=== PATIENT | male | born 1985 | race Hispanic/Latino ===

== ENCOUNTER 2018-04-26 07:00 | Outpatient (CLI) | payer BC ==
[2018-04-26 15:29] LABS: #Eosinphils 0.1 thou/uL (0.0-0.7); #Lymphocytes 1.3 thou/uL (1.20-3.40); #Monocytes 0.6 thou/uL (0.11-0.59); #Neutrophils 5.2 thou/uL (1.40-6.50); %Basophils 0.3 % (0.0-1.0); %Eosinophils 1.3 % (0.0-10.0); %Lymphocytes 17.6 % (21.0-51.0); %Monocytes 8.4 % (0.0-10.0); %Neutrophils 72.4 % (42.0-75.0); Hemoglobin 16.1 g/dL (14.0-18.0); Mean Corpuscular HGB CONC 34.5 g/dL (32.0-36.0); Mean Corpuscular Hemoglobin 31.5 pg (27.0-31.0); Mean Corpuscular Volume 91.3 fL (78.0-98.0); Mean Platelet Volume 8.1 fL (7.4-10.4); Platelet Count 236 thou/uL (130-400); RBC Distribution Width 12.7 % (11.5-14.5); White Blood Cell (WBC) Count 7.2 thou/uL (4.8-10.8)
[2018-04-26 15:55] LABS: Anion Gap 15 mmol/L (10-20); Calc. Creatinine Clearance 0 mL/min (70-130); Calcium 9.6 mg/dL (7.8-10.44); Carbon Dioxide 22 mmol/L (22-29); Chloride 105 mmol/L (98-107); Estimated GFR-MDRD 69; Glucose 130 mg/dL (70-105); Potassium 4.2 mmol/L (3.5-5.1); Sodium 138 mmol/L (136-145)
[2018-04-26 16:14] LABS: BUN (Urea Nitrogen) 14 mg/dL (8.9-20.6)
== END 2018-04-26 07:01 | disposition home or self-care (01) ==
LOC: LABBT 07:00
PROVIDERS: ATTEND Specialist
DX: Z01.812 Encounter for preprocedural laboratory examination (principal); K43.9 Ventral hernia without obstruction or gangrene
CPT/HCPCS: 80048; 85025

== ENCOUNTER 2018-04-30 11:42 | Day surgery (SDC) | payer BC ==
[2018-04-26 14:56] VITALS: BMI 38.7
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
[2018-04-30] MEDS ORDERED: Ketorolac Tromethamine 30 MG/ML VIAL ONE (12:32)
[2018-04-30] MEDS ORDERED: CEFAZOLIN 2 GM/50 ML BAG ONE (12:32)
[2018-04-30] MEDS ORDERED: Midazolam HCl 2 mg/2 ml Vial ONE (14:19)
[2018-04-30] MEDS ORDERED: Fentanyl 100 MCG/2 ML VIAL ONE ×5 (14:19→17:54)
[2018-04-30] MEDS ORDERED: PHENYLEPHRINE-NS 100 MCG/ML 10 ML SYRINGE ONE ×2 (16:10→16:19)
[2018-04-30] MEDS ORDERED: Glycopyrrolate 0.2 MG/ML 5 ML SYRINGE ONE (16:10)
[2018-04-30] MEDS ORDERED: Vecuronium 10 MG VIAL ONE ×2 (16:10→16:19)
[2018-04-30] MEDS ORDERED: Lidocaine 1% PF 5 ML VIAL ONE (16:10)
[2018-04-30] MEDS ORDERED: Ondansetron PF 4 MG/2 ML Vial ONE (16:10)
[2018-04-30] MEDS ORDERED: Rocuronium Bromide 10 MG/ML (10ML VIAL) ONE (16:10)
[2018-04-30] MEDS ORDERED: ePHEDrine/0.9% NaCl/PF SYRINGE 50 mg/10 ml ONE (16:10)
[2018-04-30] MEDS ORDERED: PROPOFOL 200 MG/20 ML VIAL ONE (16:10)
[2018-04-30] MEDS ORDERED: Famotidine/PF 20 mg/2ml Vial ONE (16:19)
[2018-04-30] MEDS ORDERED: Rocuronium Bromide 50 MG/5 ML VIAL ONE (16:20)
[2018-04-30] MEDS ORDERED: SUGAMMADEX SODIUM 200 MG/2 ML VIAL ONE (17:01)
[2018-04-30] MEDS ORDERED: HYDROcodone/Acetaminophen 5/325 mg Tablet ONE (18:43)
--- NOTE | 2018-04-30 23:22 | OP ---
DATE OF PROCEDURE: 04/30/2018 PREOPERATIVE DIAGNOSES: Morbid obesity, umbilical/ventral hernia, symptomatic. POSTOPERATIVE DIAGNOSES: Morbid obesity, umbilical/ventral hernia, symptomatic. PROCEDURE PERFORMED: Robotic repair of umbilical hernia, 4 cm defect, with reinforcement of fascial closure with 11.4 cm round Ventralight mesh. ANESTHESIA: General, local 0.5% Marcaine with epinephrine 30 mL. DESCRIPTION OF PROCEDURE: The patient was taken to the operating room, where under general anesthesia, abdomen was clipped of hair, prepared with ChloraPrep and draped in routine fashion. Left subxiphoid incision was made and pneumoperitoneum to 15 mmHg obtained with a Veress needle, replaced it with an 11 port with a balloon stay. Once this was in place, bilateral far lateral subcostal incisions were made and 8 mm port was placed. A robot was then docked, positioned, and robotic repair of the ventral/umbilical hernia undertaken. Falciform ligament was taken down with hot scissors. Incarcerated omentum reduced from the 4-cm umbilical hernia defect. Hemostasis was gained with the cautery. The fascial edges identified and closed with continuous suture of #1 V-Loc suture. Once this was approximated to and fro, pneumoperitoneum was reduced to 10 mmHg. An 11.4-cm round Ventralight mesh secured to the abdominal wall with the previously used suture, centering it about the hernia defect. The Ventralight mesh was then secured circumferentially with 2 sutures of 2-0 Stratafix. Once this was in good position, sutures were cut, needle was removed. Pneumoperitoneum was reduced and all ports reduced, and incisions closed with continuous subcu suture of 4-0 Monocryl, and [place] glue applied. Abdominal binder was placed along with a Kerlix roll in the old hernia defect. The patient tolerated the procedure well. It should be mentioned that during the closure of the defect, the hernia sac was incorporated in the fascial closure to reduce redundancy and space. Job ID: [id number]
== END 2018-04-30 20:31 | disposition home or self-care (01) ==
LOC: SDC 11:42
PROVIDERS: ATTEND Specialist
PROC: 0WUF4JZ Supplement Abdominal Wall with Synthetic Substitute, Percutaneous Endoscopic Approach (ICD-10-PCS; principal; 2018-04-30)
DX: K42.0 Umbilical hernia with obstruction, without gangrene (principal); E66.01 Morbid (severe) obesity due to excess calories; Z68.41 Body mass index [BMI] 40.0-44.9, adult
CPT/HCPCS: J0131; J1885; J2001; J2250; J2405; J2704; J3010; S0028

== ENCOUNTER 2019-01-24 18:20 | Emergency (ER) | payer BC, SELFPAY ==
[~2019-01-24 18:20] MED LIST: Iopamidol 370 76% 100 ML VIAL ONE
[2019-01-24] MEDS ORDERED: Acetaminophen 500 MG TAB ONE (19:05)
[2019-01-24] MEDS ORDERED: Ketorolac Tromethamine 30 MG/ML VIAL ONE (19:05)
[2019-01-24 19:19] LABS: #Basophils 0.1 thou/uL (0.0-0.2); #Eosinphils 0.2 thou/uL (0.0-0.7); #Lymphocytes 1.6 thou/uL (1.20-3.40); #Monocytes 0.7 thou/uL (0.11-0.59); #Neutrophils 8.4 thou/uL (1.40-6.50); %Eosinophils 1.5 % (0.0-10.0); %Lymphocytes 14.8 % (21.0-51.0); %Monocytes 6.1 % (0.0-10.0); %Neutrophils 76.6 % (42.0-75.0); Hemoglobin 15.3 g/dL (14.0-18.0); Mean Corpuscular HGB CONC 31.4 g/dL (32.0-36.0); Mean Corpuscular Hemoglobin 29.2 pg (27.0-31.0); Mean Corpuscular Volume 92.9 fL (78.0-98.0); Platelet Count 301 thou/uL (130-400); RBC Distribution Width 15.1 % (11.5-14.5); Red Blood Cell (RBC) Count 5.26 mill/uL (4.70-6.10); White Blood Cell (WBC) Count 10.9 thou/uL (4.8-10.8)
[2019-01-24 19:21] LABS: Bilirubin Small (Negative); Blood, Urine Negative (Negative); Clarity Slightly Cloudy (Clear); Glucose, Urine (Dipstick) Negative (Negative); Leukocyte Negative (Negative); Nitrite Negative (Negative); Protein, Urine (Dipstick) 30 mg/dL (Neg-Trace)
[2019-01-24 19:24] LABS: Bacteria/HPF None Seen HPF (None Seen); RBC/HPF 0-3 HPF (0-3); Squamous Epithelial 0-3 HPF (0-3); WBC/HPF 0-3 HPF (0-3)
[2019-01-24 19:35] LABS: ALT (SGPT) 39 U/L (8-55); AST (SGOT) 34 U/L (5-34); Albumin 3.9 g/dL (3.5-5.0); Alkaline Phosphatase 84 U/L (40-110); Anion Gap 15 mmol/L (10-20); BUN (Urea Nitrogen) 7 mg/dL (8.9-20.6); Bilirubin, Total 0.6 mg/dL (0.2-1.2); Calc. Creatinine Clearance 0 mL/min (70-130); Calcium 8.5 mg/dL (7.8-10.44); Carbon Dioxide 29 mmol/L (22-29); Chloride 99 mmol/L (98-107); Estimated GFR-MDRD Greater than 90; Globulin 3.2 g/dL (2.4-3.5); Glucose 123 mg/dL (70-105); Lipase 694 U/L (8-78); Potassium 3.4 mmol/L (3.5-5.1); Protein, Total 7.1 g/dL (6.0-8.3); Sodium 140 mmol/L (136-145)
--- NOTE | 2019-01-24 19:57 | CT ---
EXAM: Abdomen and pelvic CT scan with contrast: HISTORY: Abdominal pain COMPARISON: 01/16/2017 FINDINGS: The visualized lung bases are clear. Liver: Hepatic steatosis Gallbladder: Contracted Pancreas: There is mild inflammation of the pancreas with peripancreatic edema Spleen: Unremarkable. Adrenal glands: Unremarkable. Kidneys: No renal calculus or acute obstruction. No solid or cystic mass. Bowel: Incomplete assessment without enteric contrast administration Urinary Bladder: The urinary bladder is unremarkable. Adenopathy: Mild enlargement of peripancreatic lymph nodes Free Air: No free air. Ascites: No ascites. Osseous structures: No acute osseous abnormalities. IMPRESSION: CT findings indicate acute pancreatitis. There is mild peripancreatic adenopathy which may be inflamm atory. Recommend correlation with pancreatic laboratory values.
--- NOTE | 2019-01-24 20:39 | ULT ---
Gallbladder ultrasound: Multiple grayscale images of right upper quadrant obtained according to protocol. INDICATION: Pain FINDINGS: Liver: Hepatic steatosis. Gallbladder: Contracted, limiting assessment. Gallbladder wall: Thickened by contracted state. Weathers's Sign: Negative Common bile duct is normal. Ascites: None IMPRESSION: 1. Contracted gallbladder. 2. Hepatic steatosis.
== END 2019-01-24 21:45 | disposition short-term general hospital (02) ==
LOC: MERGE 18:20 → SCSER 18:20
DX: K85.90 Acute pancreatitis without necrosis or infection, unspecified (principal); I10 Essential (primary) hypertension
CPT/HCPCS: 74177; 76705; 80053; 81003; 81015; 83605; 83690; 85025; 93005; 96361; 96374; 96375; J1885; J2270; Q9967

== ENCOUNTER 2019-09-13 00:04 | Emergency (ER) | payer BC, SELFPAY ==
[2019-09-13] MEDS ORDERED: Adacel (T-DAP) 0.5 ML SYRINGE ONE ×2 (00:21→00:23)
[2019-09-13] MEDS ORDERED: Bacitracin 1 PK ONE (00:41)
[2019-09-13] MEDS ORDERED: Triple Antibiotic Oint 1 GM Packet ONE (01:01)
== END 2019-09-13 01:13 | disposition home or self-care (01) ==
LOC: ERS 00:04
DX: S61.211A Laceration without foreign body of left index finger without damage to nail, initial encounter (principal); Z23 Encounter for immunization; X99.1XXA Assault by knife, initial encounter
CPT/HCPCS: 12001; 90471; 90715

== ENCOUNTER 2021-08-25 20:52 | Inpatient (IN) | payer SELFPAY ==
[2021-08-25] MEDS ORDERED: Nitroglycerin 0.4 MG TAB 1 EACH ONE (21:15)
[2021-08-25] MEDS ORDERED: Aspirin Chewable 81 MG TAB ONE (21:15)
[2021-08-25] MEDS ORDERED: Nitroglycerin 2% Ointment 1 INCH/1 GM Packet ONE (21:15)
[2021-08-25 21:49] LABS: #Eosinphils 0.1 thou/uL (0.0-0.7); #Lymphocytes 1.9 thou/uL (1.20-3.40); #Monocytes 0.7 thou/uL (0.11-0.59); #Neutrophils 6.9 thou/uL (1.40-6.50); %Basophils 0.2 % (0.0-1.0); %Eosinophils 0.9 % (0.0-10.0); %Lymphocytes 19.3 % (21.0-51.0); %Monocytes 7.7 % (0.0-10.0); %Neutrophils 71.9 % (42.0-75.0); Hemoglobin 16.6 g/dL (14.0-18.0); Mean Corpuscular HGB CONC 32.4 g/dL (32.0-36.0); Mean Corpuscular Hemoglobin 30.5 pg (27.0-31.0); Mean Corpuscular Volume 94.2 fL (78.0-98.0); Mean Platelet Volume 8.5 fL (7.4-10.4); Platelet Count 218 thou/uL (130-400); RBC Distribution Width 14.4 % (11.5-14.5); Red Blood Cell (RBC) Count 5.43 mill/uL (4.70-6.10); White Blood Cell (WBC) Count 9.7 thou/uL (4.8-10.8)
[2021-08-25] MEDS ORDERED: hydrALAZINE 20 MG/ML VIAL ONE (22:48)
[2021-08-25 23:02] LABS: Albumin 3.8 g/dL (3.5-5.0)
[2021-08-25 23:04] LABS: Calcium 8.8 mg/dL (7.8-10.44); Chloride 102 mmol/L (98-107); Potassium 3.8 mmol/L (3.5-5.1); Sodium 138 mmol/L (136-145)
[2021-08-25 23:05] LABS: Globulin 2.7 g/dL (2.4-3.5); Glucose 137 mg/dL (70-105); Protein, Total 6.5 g/dL (6.0-8.3)
[2021-08-25 23:06] LABS: Anion Gap 13 mmol/L (10-20); Carbon Dioxide 27 mmol/L (22-29)
[2021-08-25 23:07] LABS: Bilirubin, Total 0.6 mg/dL (0.2-1.2)
[2021-08-25 23:08] LABS: Alkaline Phosphatase 72 U/L (40-110); Calc. Creatinine Clearance 0 mL/min (70-130)
[2021-08-25 23:09] LABS: BUN (Urea Nitrogen) 5 mg/dL (8.9-20.6)
[2021-08-25 23:10] LABS: AST (SGOT) 31 U/L (5-34)
[2021-08-25 23:11] LABS: ALT (SGPT) 65 U/L (8-55)
[2021-08-25 23:13] LABS: Bilirubin Negative (Negative); Blood, Urine Negative (Negative); Clarity Clear (Clear); Glucose, Urine (Dipstick) Normal (Negative); Ketone, Urine Negative (Negative); Leukocyte Negative Leu/uL (Negative); Nitrite Negative (Negative); Protein, Urine (Dipstick) 20 mg/dL (Neg-Trace); Specific Gravity, Urine 1.023 (1.002-1.036); Urobilinogen 3 mg/dL (Less than 2); pH, Urine 7.5 (5.0-9.0)
[2021-08-25 23:23] LABS: Amphetamine Not Detected (NotDetected); Barbiturates Screen Not Detected (NotDetected); Benzodiazepine Screen Not Detected (NotDetected); Cocaine Metabolite Screen Not Detected (NotDetected); Methadone Not Detected (NotDetected); Methamphetamine Not Detected (NotDetected); Opiate Screen Not Detected (NotDetected); Oxycodone Screen Not Detected (NotDetected); Phencyclidine (PCP) Not Detected (NotDetected); THC/Cannabinoid Screen Not Detected (NotDetected); Tricyclic Screen Not Detected (NotDetected)
[2021-08-26 00:16] VITALS: BMI 47.9
[2021-08-26 01:46] LABS: Troponin I 0.012 ng/mL (< 0.028)
[2021-08-26] MEDS ORDERED: Nitroglycerin 0.4 MG TAB (25 Tab Bottle) SL PRN (01:50)
[2021-08-26] MEDS ORDERED: Ondansetron PF 4 MG/2 ML Vial IVP PRN (01:50)
[2021-08-26] MEDS ORDERED: hydrALAZINE 20 MG/ML VIAL SLOW IVP PRN ×2 (01:52→20:37)
[2021-08-26] MEDS: Acetaminophen 325 MG TAB PO PRN ×2 (02:01→07:21)
[2021-08-26] MEDS ORDERED: Nitroglycerin 2% Ointment 1 INCH/1 GM Packet TOP SCH (03:00)
[2021-08-26 04:44] LABS: Hemoglobin A1c 6.1 % (4.0-6.0)
[2021-08-26 04:45] LABS: #Eosinphils 0.1 thou/uL (0.0-0.7); #Lymphocytes 1.7 thou/uL (1.20-3.40); #Monocytes 0.8 thou/uL (0.11-0.59); #Neutrophils 6.3 thou/uL (1.40-6.50); %Basophils 0.1 % (0.0-1.0); %Eosinophils 1.1 % (0.0-10.0); %Lymphocytes 18.7 % (21.0-51.0); %Monocytes 9.1 % (0.0-10.0); Mean Corpuscular HGB CONC 32.1 g/dL (32.0-36.0); Mean Corpuscular Hemoglobin 30.3 pg (27.0-31.0); Mean Corpuscular Volume 94.4 fL (78.0-98.0); Mean Platelet Volume 8.3 fL (7.4-10.4); Platelet Count 228 thou/uL (130-400); RBC Distribution Width 14.2 % (11.5-14.5); Red Blood Cell (RBC) Count 5.27 mill/uL (4.70-6.10); White Blood Cell (WBC) Count 8.9 thou/uL (4.8-10.8)
[2021-08-26 05:00] LABS: Anion Gap 14 mmol/L (10-20); BUN (Urea Nitrogen) 6 mg/dL (8.9-20.6); Calc. Creatinine Clearance 259 mL/min (70-130); Carbon Dioxide 27 mmol/L (22-29); Cardiac Risk 10.4 (Less than 4.5); Chloride 102 mmol/L (98-107); Cholesterol 145 mg/dl (< 200 Desired); Glucose 139 mg/dL (70-105); HDL Cholesterol 14 mg/dL (>60 Neg Risk); LDL Cholesterol, Calculated 98 mg/dL; Magnesium 2.1 mg/dL (1.6-2.6); Potassium 3.6 mmol/L (3.5-5.1); Sodium 139 mmol/L (136-145); Triglycerides 165 mg/dL (Less than 150)
[2021-08-26 05:16] LABS: Troponin I 0.025 ng/mL (< 0.028)
[2021-08-26] MEDS ORDERED: Regadenoson 0.4 MG/5 ML SYRINGE ONE (08:39)
[2021-08-26] MEDS: Fenofibrate Nanocrystallized 145 MG TAB PO SCH (09:34)
[2021-08-26] MEDS: Lisinopril 20 MG TAB PO SCH (09:34)
[2021-08-26] MEDS: Enoxaparin Sodium 40 MG/0.4 ML SYRINGE SC SCH (13:11)
[2021-08-26 13:29] LABS: SARS-CoV-2 PCR by NAA Not Detected (NotDetected)
[2021-08-26] MEDS ORDERED: Atorvastatin Calcium 20 MG TAB PO SCH (21:00)
[2021-08-27 04:48] LABS: #Basophils 0.1 thou/uL (0.0-0.2); #Eosinphils 0.1 thou/uL (0.0-0.7); #Lymphocytes 1.9 thou/uL (1.20-3.40); #Monocytes 1.1 thou/uL (0.11-0.59); #Neutrophils 7.3 thou/uL (1.40-6.50); %Basophils 0.6 % (0.0-1.0); %Eosinophils 1.2 % (0.0-10.0); %Monocytes 10.6 % (0.0-10.0); %Neutrophils 69.6 % (42.0-75.0); Mean Corpuscular HGB CONC 31.8 g/dL (32.0-36.0); Mean Corpuscular Hemoglobin 30.2 pg (27.0-31.0); Mean Corpuscular Volume 94.8 fL (78.0-98.0); Mean Platelet Volume 8.3 fL (7.4-10.4); Platelet Count 240 thou/uL (130-400); RBC Distribution Width 14.4 % (11.5-14.5); Red Blood Cell (RBC) Count 5.63 mill/uL (4.70-6.10); White Blood Cell (WBC) Count 10.5 thou/uL (4.8-10.8)
[2021-08-27 05:20] LABS: Anion Gap 13 mmol/L (10-20); BUN (Urea Nitrogen) 6 mg/dL (8.9-20.6); Calc. Creatinine Clearance 269 mL/min (70-130); Calcium 9.2 mg/dL (7.8-10.44); Carbon Dioxide 25 mmol/L (22-29); Chloride 103 mmol/L (98-107); Glucose 106 mg/dL (70-105); Potassium 4.3 mmol/L (3.5-5.1); Sodium 137 mmol/L (136-145)
[2021-08-27] MEDS: Lisinopril 20 MG TAB PO SCH (08:17)
[2021-08-27] MEDS: NIFEdipine XL 30 MG TAB PO SCH (08:17)
[2021-08-27] MEDS: Acetaminophen 325 MG TAB PO PRN (08:18)
[2021-08-27] MEDS: Enoxaparin Sodium 40 MG/0.4 ML SYRINGE SC SCH (08:18)
[2021-08-27] MEDS: Fenofibrate Nanocrystallized 145 MG TAB PO SCH (08:18)
[2021-08-27 12:11] VITALS: BP 169/79; TEMP 98.5
[2021-08-27] MEDS ORDERED: NIFEdipine XL 30 MG TAB PO SCH (13:45)
[2021-08-28] MEDS ORDERED: NIFEdipine XL 60 MG TAB PO SCH (09:00)
== END 2021-08-27 15:24 | disposition home or self-care (01) | DRG 305 ==
LOC: ERS 20:52 → 2NO 22:44 → OBSVTOIN 08-26 14:40
PROVIDERS: ADMIT Emergency Medicine; ATTEND Emergency Medicine
DX: I16.0 Hypertensive urgency (principal); Z68.42 Body mass index [BMI] 45.0-49.9, adult; R07.9 Chest pain, unspecified; Z20.822 Contact with and (suspected) exposure to COVID-19; I10 Essential (primary) hypertension; E78.5 Hyperlipidemia, unspecified; G47.33 Obstructive sleep apnea (adult) (pediatric); E66.01 Morbid (severe) obesity due to excess calories; Z99.89 Dependence on other enabling machines and devices; Z98.890 Other specified postprocedural states; Z79.899 Other long term (current) drug therapy
CPT/HCPCS: 36415; 71045; 78452; 80048; 80053; 80061; 80306; 81003; 83036; 83735; 83880; 84484; 85025; 93005; 93017; 94760; 96372; 96374; A9500; G0378; J0360; J1650; J2785; U0003; U0005

== ENCOUNTER 2023-03-10 00:05 | Emergency (ER) | payer SELFPAY ==
[2023-03-10 00:36] LABS: #Eosinphils 0.2 thou/uL (0.0-0.7); #Monocytes 0.8 thou/uL (0.11-0.59); #Neutrophils 5.8 thou/uL (1.40-6.50); %Basophils 0.5 % (0.0-1.0); %Eosinophils 2.3 % (0.0-10.0); %Lymphocytes 19.1 % (21.0-51.0); %Monocytes 9.2 % (0.0-10.0); %Neutrophils 68.5 % (42.0-75.0); Hematocrit 50.5 % (42.0-52.0); Hemoglobin 16.8 g/dL (14.0-18.0); Mean Corpuscular HGB CONC 33.3 g/dL (32.0-36.0); Mean Corpuscular Hemoglobin 29.5 pg (27.0-31.0); Mean Corpuscular Volume 88.8 fl (78.0-98.0); Mean Platelet Volume 10.1 fL (7.4-10.4); Platelet Count 294 10x3/uL (130-400); RBC Distribution Width 13.3 % (11.5-14.5); Red Blood Cell (RBC) Count 5.69 mill/uL (4.70-6.10); White Blood Cell (WBC) Count 8.4 10x3/uL (4.8-10.8)
[2023-03-10 01:00] LABS: ALT (SGPT) 53 U/L (8-55); AST (SGOT) 43 U/L (5-34); Albumin 4.3 g/dL (3.5-5.0); Alkaline Phosphatase 90 U/L (40-110); Anion Gap 17 mmol/L (10-20); BUN (Urea Nitrogen) 19 mg/dL (8.9-20.6); Bilirubin, Total 0.7 mg/dL (0.2-1.2); Calc. Creatinine Clearance 0 mL/min (70-130); Calcium 10.9 mg/dL (7.8-10.44); Carbon Dioxide 25 mmol/L (22-29); Chloride 95 mmol/L (98-107); Estimated GFR 103; Globulin 3.4 g/dL (2.4-3.5); Glucose 113 mg/dL (70-105); Potassium 3.3 mmol/L (3.5-5.1); Protein, Total 7.7 g/dL (6.0-8.3); Sodium 134 mmol/L (136-145)
[2023-03-10] MEDS ORDERED: Potassium Chloride 20 MEQ TAB ONE (03:59)
[2023-03-10 04:27] LABS: Troponin I Less than 0.010 ng/mL (< 0.028)
== END 2023-03-10 01:03 | disposition home or self-care (01) ==
LOC: ERS 00:05
DX: M79.652 Pain in left thigh (principal); E87.6 Hypokalemia; E11.9 Type 2 diabetes mellitus without complications; I10 Essential (primary) hypertension; Z79.899 Other long term (current) drug therapy; Z79.84 Long term (current) use of oral hypoglycemic drugs
CPT/HCPCS: 36415; 80053; 83880; 84484; 85025; 93005

== ENCOUNTER 2023-03-10 18:59 | Emergency (ER) | payer SELFPAY ==
[2023-03-10 21:15] LABS: #Eosinphils 0.2 thou/uL (0.0-0.7); #Monocytes 0.6 thou/uL (0.11-0.59); #Neutrophils 4.1 thou/uL (1.40-6.50); %Basophils 0.3 % (0.0-1.0); %Eosinophils 2.4 % (0.0-10.0); %Lymphocytes 19.3 % (21.0-51.0); %Monocytes 10.1 % (0.0-10.0); %Neutrophils 67.4 % (42.0-75.0); Hematocrit 48.2 % (42.0-52.0); Mean Corpuscular HGB CONC 33.2 g/dL (32.0-36.0); Mean Corpuscular Hemoglobin 29.5 pg (27.0-31.0); Mean Corpuscular Volume 88.9 fl (78.0-98.0); Platelet Count 284 10x3/uL (130-400); RBC Distribution Width 13.4 % (11.5-14.5); Red Blood Cell (RBC) Count 5.42 mill/uL (4.70-6.10); White Blood Cell (WBC) Count 6.2 10x3/uL (4.8-10.8)
[2023-03-10 21:38] LABS: ALT (SGPT) 48 U/L (8-55); AST (SGOT) 37 U/L (5-34); Albumin 4.2 g/dL (3.5-5.0); Alkaline Phosphatase 83 U/L (40-110); Anion Gap 15 mmol/L (10-20); BUN (Urea Nitrogen) 23 mg/dL (8.9-20.6); Bilirubin, Total 0.5 mg/dL (0.2-1.2); Calc. Creatinine Clearance 0 mL/min (70-130); Calcium 10.4 mg/dL (7.8-10.44); Carbon Dioxide 27 mmol/L (22-29); Chloride 100 mmol/L (98-107); Estimated GFR 98; Globulin 2.9 g/dL (2.4-3.5); Glucose 115 mg/dL (70-105); Potassium 3.7 mmol/L (3.5-5.1); Protein, Total 7.1 g/dL (6.0-8.3); Sodium 138 mmol/L (136-145)
== END 2023-03-11 00:12 | disposition home or self-care (01) ==
LOC: ERS 18:59
DX: L76.34 Postprocedural seroma of skin and subcutaneous tissue following other procedure (principal); E11.9 Type 2 diabetes mellitus without complications; I10 Essential (primary) hypertension
CPT/HCPCS: 36415; 76999; 86140

== ENCOUNTER 2023-05-25 07:17 | Emergency (ER) | payer BC, SELFPAY | END 2023-05-25 08:11 | disposition home or self-care (01) | LOC: ERS 07:17 | DX: S46.212A Strain of muscle, fascia and tendon of other parts of biceps, left arm, initial encounter (principal); W50.0XXA Accidental hit or strike by another person, initial encounter; Y93.71 Activity, boxing; E11.9 Type 2 diabetes mellitus without complications; I10 Essential (primary) hypertension; Z79.84 Long term (current) use of oral hypoglycemic drugs; Z79.899 Other long term (current) drug therapy | CPT/HCPCS: 99283 ==

== ENCOUNTER 2023-05-26 13:49 | Outpatient (CLI) | payer BC | END 2023-05-26 13:50 | disposition home or self-care (01) | LOC: BICMRI 13:49 | PROVIDERS: ATTEND Orthopaedic Surgery | DX: S46.212A Strain of muscle, fascia and tendon of other parts of biceps, left arm, initial encounter (principal); M67.824 Other specified disorders of tendon, left elbow ==

== ENCOUNTER 2023-05-29 15:13 | Outpatient (CLI) | payer BC ==
[2023-05-29 16:22] LABS: #Eosinphils 0.1 10x3/uL (0.0-0.5); #Monocytes 0.6 10x3/uL (0.0-1.1); #Neutrophils 4.5 10x3/uL (1.5-8.4); %Basophils 0.6 % (0.0-2.0); %Lymphocytes 19.2 % (18.0-47.0); %Monocytes 9.2 % (0.0-10.0); %Neutrophils 68.5 % (40.0-75.0); Hematocrit 48.7 % (38.8-50.0); Hemoglobin 16.1 g/dL (13.5-17.5); Mean Corpuscular HGB CONC 33.1 g/dL (32.0-36.0); Mean Corpuscular Hemoglobin 28.8 pg (27.0-33.0); Mean Platelet Volume 10.2 fl (7.4-10.4); Platelet Count 303 10x3/uL (150-450); RBC Distribution Width 14.5 % (11.5-14.5); White Blood Cell (WBC) Count 6.6 10x3/uL (3.5-10.5)
[2023-05-29 16:57] LABS: Anion Gap 15 mmol/L (10-20); BUN (Urea Nitrogen) 14 mg/dL (8.9-20.6); Calc. Creatinine Clearance 0 mL/min (70-130); Calcium 9.9 mg/dL (7.8-10.44); Carbon Dioxide 25 mmol/L (22-29); Chloride 101 mmol/L (98-107); Estimated GFR 94; Glucose 104 mg/dL (70-105); Potassium 3.9 mmol/L (3.5-5.1); Sodium 137 mmol/L (136-145)
== END 2023-05-29 15:14 | disposition home or self-care (01) ==
LOC: LABBT 15:13
PROVIDERS: ATTEND Orthopaedic Surgery
DX: Z01.812 Encounter for preprocedural laboratory examination (principal); S46.212A Strain of muscle, fascia and tendon of other parts of biceps, left arm, initial encounter
CPT/HCPCS: 80048; 85025

== ENCOUNTER 2023-06-03 05:52 | Day surgery (SDC) | payer BC ==
[2023-05-29 15:31] VITALS: BMI 48.9
[2023-06-03] MEDS ORDERED: PROPOFOL 40 ML ONE (06:24)
[2023-06-03] MEDS ORDERED: fentaNYL PF 100 MCG/2 ML SYRINGE ONE (06:24)
[2023-06-03] MEDS ORDERED: Midazolam HCl 2 mg/2 ml Vial ONE (06:24)
[2023-06-03] MEDS ORDERED: Bupivacaine 0.25% HCL 30 ML VIAL ONE (06:28)
[2023-06-03] MEDS ORDERED: EPINEPHrine 1 MG/ML VIAL ONE ×2 (06:28→10:29)
[2023-06-03] MEDS ORDERED: Sodium Chloride 0.9% 100 ML ONE (06:48)
[2023-06-03] MEDS ORDERED: CEFAZOLIN 2 GM VIAL ONE (06:48)
[2023-06-03] MEDS ORDERED: Ondansetron PF 4 MG/2 ML Vial ONE (07:25)
[2023-06-03] MEDS ORDERED: Dexmedetomidine 200 MCG/2 ML VIAL ONE (07:34)
[2023-06-03] MEDS ORDERED: Glycopyrrolate 0.2 MG/ML 5 ML SYRINGE ONE (07:36)
[2023-06-03] MEDS ORDERED: PROPOFOL 20 ML ONE (08:52)
[2023-06-03] MEDS ORDERED: Ipratropium/Albuterol 3 ML NEB ONE (09:23)
[2023-06-03] MEDS ORDERED: Bupivacaine PF 0.5% 30 ML VIAL ONE (10:29)
[2023-06-03] MEDS ORDERED: Lidocaine 1% (PF) 30 ML VIAL ONE (10:29)
== END 2023-06-03 14:45 | disposition home or self-care (01) ==
LOC: SDC 05:52
PROVIDERS: ATTEND Orthopaedic Surgery
PROC: 0LS40ZZ Reposition Left Upper Arm Tendon, Open Approach (ICD-10-PCS; principal; 2023-06-03)
DX: S46.212A Strain of muscle, fascia and tendon of other parts of biceps, left arm, initial encounter (principal); E78.00 Pure hypercholesterolemia, unspecified; Z98.890 Other specified postprocedural states; Z79.899 Other long term (current) drug therapy; X58.XXXA Exposure to other specified factors, initial encounter
CPT/HCPCS: 71045; 93005; 93010; A6223; C1713; J0171; J0665; J2001; J2250; J2405; J2704; J3490; J7620